=== PATIENT | male | born 1965 | race Caucasian/White ===

== ENCOUNTER 2025-04-16 07:25 | Day surgery (SDC) | payer BC ==
[~2025-04-16] VITALS: Ht 185.4 cm; Wt 115.7 kg
[~2025-04-16 07:25] MED LIST: LIDOcaine 2% Viscous 15ml cup MM ONE; OMEP40CA21 PO; ringers solution, lacted 1,000 ML IV SCH
[2025-04-16 07:50] VITALS: BP 142/100; PULSE 78; RESP 16; TEMP 97.9; O2SAT 98
[2025-04-16] MEDS ORDERED: MIDAZolam 1 MG/ML 5ML VIAL ONE (09:24)
[2025-04-16] MEDS ORDERED: fentaNYL/PF 50MCG/1 ML 2ML syringe ONE (09:24)
[2025-04-16] MEDS ORDERED: propofol inj 0 ML IV ONE (09:25)
[2025-04-16] MEDS ORDERED: LIDOcaine 1%/PF 5ML 10 MG/ML VIAL ONE (09:26)
[2025-04-16] MEDS ORDERED: propofol inj 20 ML IV ONE (09:26)
[2025-04-16 09:50] VITALS: BP 111/66; PULSE 71; RESP 15; O2SAT 98
[2025-04-16 10:00] VITALS: BP 109/71; PULSE 74; RESP 14; O2SAT 97
[2025-04-16 10:10] VITALS: BP 109/77; PULSE 67; RESP 16; O2SAT 98
[2025-04-16 10:20] VITALS: BP 129/88; PULSE 72; RESP 13; O2SAT 95
[2025-04-16 10:30] VITALS: BP 127/93; PULSE 71; RESP 18; O2SAT 95
== END 2025-04-16 10:40 | disposition home or self-care (01) ==
LOC: GI LAB 07:25
PROVIDERS: ATTEND Internal Medicine Gastroenterology
DX: K30 Functional dyspepsia (principal); R10.33 Periumbilical pain; K21.00 Gastro-esophageal reflux disease with esophagitis, without bleeding; K25.9 Gastric ulcer, unspecified as acute or chronic, without hemorrhage or perforation; K31.89 Other diseases of stomach and duodenum; E66.9 Obesity, unspecified; Z87.440 Personal history of urinary (tract) infections; Z79.899 Other long term (current) drug therapy; Z98.890 Other specified postprocedural states; Z68.28 Body mass index [BMI] 28.0-28.9, adult; Z88.0 Allergy status to penicillin; Z88.1 Allergy status to other antibiotic agents
CPT/HCPCS: 43239; 82948; J2250; J2704; J3010; J3490; J7120; Z7512; A4615; A4618; A6449; A7000

== ENCOUNTER 2025-04-27 08:09 | Day surgery (SDC) | payer BC ==
[2025-04-16 09:26] VITALS: BP 142/100; PULSE 78; RESP 16; TEMP 97.9; O2SAT 99
[2025-04-16 09:30] VITALS: RESP 16; O2SAT 99
[2025-04-16 09:31] VITALS: BP 142/100; PULSE 78; RESP 16; TEMP 97.9; O2SAT 99
[~2025-04-27] VITALS: Ht 185.4 cm; Wt 112.4 kg
[~2025-04-27 08:09] MED LIST changes: -LIDOcaine 2% Viscous 15ml cup MM ONE
[2025-04-27 08:29] VITALS: BP 133/95; PULSE 75; RESP 16; TEMP 97.8; O2SAT 98
[2025-04-27] MEDS ORDERED: MIDAZolam 1 MG/ML 5ML VIAL ONE (11:57)
[2025-04-27] MEDS ORDERED: fentaNYL/PF 50MCG/1 ML 2ML syringe ONE (11:58)
[2025-04-27 12:45] VITALS: BP 127/90; PULSE 75; RESP 13; O2SAT 98
[2025-04-27 12:50] VITALS: BP 124/96; PULSE 73; RESP 16; O2SAT 99
[2025-04-27 13:00] VITALS: BP 123/87; PULSE 73; RESP 19; O2SAT 99
[2025-04-27 13:10] VITALS: BP 104/79; PULSE 74; RESP 12; O2SAT 100
[2025-04-27 13:20] VITALS: BP 122/88; PULSE 76; RESP 15; O2SAT 97
--- NOTE | 2025-04-29 17:25 | PATHOLOGY REPORT ---
[facility] [address] [place] [address] SURGICAL PATHOLOGY REPORT CaseNumber: [id number] Surgeon:Hardik Naranjo M.D. CLINICAL INFORMATION CLINICAL INFORMATION: Screening. 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 DIAGNOSIS: C.COLON, RECTUM; BIOPSY - HYPERPLASTIC POLYP. MICROSCOPIC DESCRIPTION A. COLON, DISTAL SIGMOID MICROSCOPIC DESCRIPTION: Three slides are examined. Performed. B. COLON, SIGMOID MICROSCOPIC DESCRIPTION: One slide is examined. Performed. C. COLON, RECTUM MICROSCOPIC DESCRIPTION: One slide is examined. Performed. GROSS DESCRIPTION A. COLON, DISTAL SIGMOID GROSS DESCRIPTION: Received in a container of formalin labeled with the patient's name, number, and identified per requisition sheet as "proximal sigmoid polyp" is a 2 x 1.7 x 1.2 cm polypoid piece of tapia tissue. The specimen is sectioned. The specimen is entirely submitted as A1-A3. The time at which the specimen was removed was 1223. The time at which the specimen was placed in formalin was 1225. B. COLON, SIGMOID GROSS DESCRIPTION: Received in a container of formalin labeled with the patient's name, number, and "sigmoid colon polyp"is a 1.3 x 1 x 0.5 cm aggregate of irregularly shaped pieces of tapia tissue. The specimen is entirely submitted as B1. The time at which the specimen was removed was 1229. The time at which the specimen was placed in formalin was 1230. C. COLON, RECTUM GROSS DESCRIPTION: Received in a container of formalin labeled with the patient's name, number, and "rectal polyps" are 2 polypoid pieces of tapia tissue 0.3 and 0.4 x 0.3 x 0.1 cm. The specimen is entirely submitted as C1. The time at which the specimen was removed was not provided. The time at which the specimen was placed in formalin was not provided. Electronically signed by: Natanael Diane M.D. 04/29/2025 4:55:00 PM
== END 2025-04-27 13:35 | disposition home or self-care (01) ==
LOC: GI LAB 08:09
PROVIDERS: ATTEND Internal Medicine Gastroenterology
DX: Z12.11 Encounter for screening for malignant neoplasm of colon (principal); D12.5 Benign neoplasm of sigmoid colon; K63.5 Polyp of colon; K62.1 Rectal polyp; K64.8 Other hemorrhoids; K21.9 Gastro-esophageal reflux disease without esophagitis; Z87.440 Personal history of urinary (tract) infections; Z79.899 Other long term (current) drug therapy; Z98.890 Other specified postprocedural states; Z88.0 Allergy status to penicillin; Z88.1 Allergy status to other antibiotic agents
CPT/HCPCS: 45385; 82948; J2250; J3010; J7120; Z7512; 99152; 99153; A4620

== ENCOUNTER 2025-07-07 08:01 | Outpatient (CLI) | payer BC ==
[~2025-07-07 08:01] MED LIST changes: -ringers solution, lacted 1,000 ML IV SCH
[2025-07-07] MEDS ORDERED: iohexol 300mg/ml 100ml inj. ONE (08:17)
[2025-07-07 08:48] LABS: CREATININE 1.33 MG/DL (0.60-1.10); TOTAL CARBON DIOXIDE 30.3 MMOL/L (24-32); eGFR 55 ML/MIN
--- NOTE | 2025-07-07 10:38 | RADIOLOGY REPORT ---
CLINICAL HISTORY: GENERALIZED ABDOMINAL PAIN TECHNIQUE: CT of the abdomen and pelvis was performed with IV contrast. This exam was performed according to our departmental dose optimization program. Up-to-date CT equipment and radiation dose reduction techniques are utilized as appropriate. 100 mL Omnipaque 300 was administered intravenously. Oral contrast was also administered. CTDI 32 DLP 1848 COMPARISON: None FINDINGS: Abdomen/Pelvis: The spleen, pancreas, gallbladder, adrenal glands, kidneys, bladder, and prostate gland are unremarkable. There is diffuse hepatic steatosis with a 2 cm right inferior hepatic lobe enhancing structure. The abdominal aorta is normal in course and caliber. There are mild aortic atherosclerotic calcifications. There is no free intraperitoneal air or fluid. There is no enlarged abdominal or pelvic lymph node. There is no bowel wall thickening or dilatation. The appendix is normal. There is a small umbilical hernia with fat and septations, with overlying mesh material, suggesting previous treatment. There is colonic diverticulosis, [id number] at the left colon. Other: The imaged lower thorax is unremarkable. No acute osseous abnormality is evident. There is multilevel spinal stenosis, very severe at L3-L4 with a diffuse disc bulge, calcified ligamentum flavum thickening, facet hypertrophy, and small lumbar pedicles. IMPRESSION: No acute CT abnormality in the abdomen / pelvis. Diffuse hepatic steatosis with 2 cm enhancing right inferior hepatic lobe structure, favor vascular shunt with other possibility such as a hemangioma in the differential. If definitive assessment is warranted, liver MRI is suggested. Colonic diverticulosis. Multilevel central canal stenosis, very severe at L3-L4.
--- NOTE | 2025-07-07 11:06 | RADIOLOGY REPORT ---
INDICATION: GENERALIZED ABDOMINAL PAIN TECHNIQUE: Multiple real-time sonographic images of the abdomen were obtained. COMPARISON: CT CT ABDOMEN PELVIS W/ IV ORAL CONTRAST on DOS: 07/07/25 FINDINGS: The liver is heterogeneous in echogenicity with nodular contour. The liver measures 19.1 cm. No intrahepatic biliary ductal dilatation is noted. The gallbladder wall measures 0.2 cm and is unremarkable. No gallstones or sludge is seen. The common duct measures 0.5 cm and is unremarkable. There is pericholecystic fluid is noted. Negative sonographic Vaughn's sign. The right kidney measures 11.9 cm. No hydronephrosis. The left kidney measures 11.5 cm. No hydronephrosis. The spleen measures 13.2 cm, within normal limits. The echogenicity is within normal limits. The pancreas is not well visualized due to obscuration from bowel gas. The visualized portions of the IVC and aorta are grossly unremarkable. IMPRESSION: 1. Cirrhotic morphology of the liver. 2. No gallstones or acute cholecystitis.
== END 2025-07-07 23:59 | disposition home or self-care (01) ==
LOC: RAD 08:01
PROVIDERS: ATTEND Internal Medicine Gastroenterology
DX: K74.60 Unspecified cirrhosis of liver (principal); K76.0 Fatty (change of) liver, not elsewhere classified; R10.84 Generalized abdominal pain; K57.30 Diverticulosis of large intestine without perforation or abscess without bleeding
CPT/HCPCS: 36415; 74177; 76700; 80053; Q9967